=== PATIENT | female | born 1990 | race American Indian/Alaskan Native ===

== ENCOUNTER 2017-01-24 21:51 | Emergency (ER) | payer SELFPAY ==
[2017-01-24 23:32] LABS: Basophils % (Auto) 0.5 % (0.0-1.8); Eosinophils % (Auto) 2.3 % (0.0-4.3); Hematocrit 36.4 % (30.3-42.9); Mean Corpuscular HGB Conc 33 % (30-34); Mean Corpuscular Hemoglobin 29 pg (28-32); Mean Corpuscular Volume 88 fl (79-97); Platelet Count 199 K/mm3 (140-440); Red Blood Count 4.12 M/mm3 (3.65-5.03); Red Cell Distribution Width 13.7 % (13.2-15.2); White Blood Count 5.6 K/mm3 (4.5-11.0)
[2017-01-25 00:21] LABS: Anion Gap 17 mmol/L; BUN/Creatinine Ratio 16.66; Blood Urea Nitrogen 10 mg/dL (7-17); Calcium 9.1 mg/dL (8.4-10.2); Carbon Dioxide 25 mmol/L (22-30); Chloride 106.2 mmol/L (98-107); Creatine Kinase MB 1.3 ng/mL (0.0-4.0); Glucose 92 mg/dL (65-100); Potassium 4.1 mmol/L (3.6-5.0); Sodium 144 mmol/L (137-145)
[2017-01-25 00:45] VITALS: BP 126/79
--- NOTE | 2017-01-25 01:21 | Emergency Department Report ---
HPI - General Chief Complaint: Upper Respiratory Infection Time Seen by Provider: 01/25/17 01:06 - HPI HPI: 26-year-old female presents to the ED complaining of cough times about 2 weeks. Patient states 3 days ago coughing worsened and has become intermittent causing her mild chest pain every time she coughs. Patient states sometimes dry cough and sometimes it is productive. Patient denies fevers/chills/nausea/vomiting/abdominal pain/chest pain/ shortness of breath/dizziness/blurry vision. ED Past Medical Hx - Past Medical History Previous Medical History?: No - Surgical History Past Surgical History?: No - Social History Smoking Status: Never Smoker Substance Use Type: None - Medications Home Medications: Home Medications Medication Instructions Recorded Confirmed Last Taken Type Acetamin/Codeine 120-12Mg/5 ml 5 ml PO TID PRN #80 ml 01/25/17 Unknown Rx [Tylenol/Codeine] predniSONE [Deltasone] 20 mg PO DAILY #4 tablet 01/25/17 Unknown Rx ED Review of Systems ROS: Stated complaint: TIGHTNESS IN CHEST, SHORTNESS OF BREATH, COUGH Other details as noted in HPI Constitutional: denies: chills, fever Eyes: denies: eye pain, eye discharge, vision change ENT: denies: ear pain, throat pain Respiratory: denies: cough, shortness of breath, wheezing Cardiovascular: denies: chest pain, palpitations Endocrine: no symptoms reported Gastrointestinal: denies: abdominal pain, nausea, vomiting, diarrhea, constipation Genitourinary: denies: urgency, dysuria, frequency, hematuria, discharge Musculoskeletal: denies: back pain, joint swelling, arthralgia, myalgia Skin: denies: rash, lesions, change in color, pruritus Neurological: denies: headache, weakness, numbness, paresthesias, confusion Psychiatric: denies: anxiety, depression, suicidal thoughts Hematological/Lymphatic: denies: easy bleeding, easy bruising, swollen glands Physical Exam - Physical Exam Vital Signs: Vital Signs 01/24/17 01/25/17 21:59 00:44 Temperature 98.9 F 98.2 F Pulse Rate 95 H 86 Respiratory 18 16 Rate Blood Pressure 117/79 126/79 [Right] O2 Sat by Pulse 99 100 Oximetry Physical Exam: GENERAL: Alert and oriented x3, no apparent distress, Normal Gait, atraumatic. HEAD: Head is normocephalic and a-traumatic. EYES: Extra ocular muscles are intact. Pupils are equal, round, and reactive to light and accommodation. EARS: symetrical, atraumatic, non tender, ear canal clear and moderate cerumen, tympanic membrance non inflamed. gross auditory nml bilaterally. NOSE: Nose symetrical, Nontender,Nares appeared normal. MOUTH:Mouth is well hydrated and without lesions. Tonsils nonerythematous or swollen, Uvula midline, Tongue not elevated. Mucous membranes are moist. Posterior pharynx clear, no exudate or lesions. Patent airways. NECK: Supple. Non edematous, No carotid bruits. No lymphadenopathy or thyromegaly. LUNGS: Symetrical with respiration, No wheezing, no rales or crackles, CTAB. HEART: S1, S2 present, regular rate and rhythm without murmur, no rubs, no gallops. NEUROLOGIC: No focal Deficit, Cranial nerves II through XII are grossly intact. No loss of sensation, SKIN: Warm and dry, No lesions, No ulceration or induration present. ED Course Vital Signs 01/24/17 01/25/17 21:59 00:44 Temperature 98.9 F 98.2 F Pulse Rate 95 H 86 Respiratory 18 16 Rate Blood Pressure 117/79 126/79 [Right] O2 Sat by Pulse 99 100 Oximetry ED Medical Decision Making - Lab Data Result diagrams: 01/24/17 23:07 01/24/17 23:07 - EKG Data EKG shows normal: sinus rhythm Rate: normal - Radiology Data Radiology results: report reviewed, image reviewed FINAL REPORT EXAM: XR CHEST ROUTINE 2V HISTORY: Shortness of breath TECHNIQUE: PA and lateral views of the chest PRIORS: None. FINDINGS: Lines, tubes, and devices: N/A Lungs and pleura: Trachea is normal in position. Lungs are clear of infiltrate, pleural effusion, vascular congestion, or pneumothorax. Cardiomediastinal silhouette: Cardiac and mediastinal silhouettes are unremarkable. Other: Bony structures are intact. IMPRESSION: No acute cardiopulmonary process seen. Transcribed By: [facility] Dictated By: EVERETTE RIZVI MD Electronically Authenticated By: EVERETTE RIZVI MD Signed Date/Time: 01/25/17 0300 - Medical Decision Making 26-year-old female presents to bronchitis. ED course: Patient received 10 mg of prednisone and Robitussin. CBC, BMP, chest x-ray, EKG completed. All normal, no abnormalities. Discussed all medication related Tylenol with Codeine and Lindsay Kraft. Discussed to follow up with primary care physician. Patient is in no acute blister distress vital signs are stable. Critical care attestation.: If time is entered above; I have spent that time in minutes in the direct care of this critically ill patient, excluding procedure time. ED Disposition Clinical Impression: Bronchitis Disposition: DISCHARGED TO HOME OR SELFCARE Is pt being admited?: No Does the pt Need Aspirin: No Condition: Stable Instructions: Acute Bronchitis (ED), Chronic Bronchitis (ED) Prescriptions: Acetamin/Codeine 120-12Mg/5 ml [Tylenol/Codeine] 5 ml PO TID PRN #80 ml PRN Reason: Pain predniSONE [Deltasone] 20 mg PO DAILY #4 tablet Referrals: PRIMARY CAREMD [Primary Care Provider] - 3-5 Days LAINEY HOOD MD [Referring] - 3-5 Days SAMANTA JAIME MD [Referring] - 3-5 Days KELLY ORTIZ MD [Staff Physician] - 3-5 Days [facility] [Outside] - 3-5 Days [facility] [Outside] - 3-5 Days [facility] [Outside] - 3-5 Days Forms: Work/School Release Form(ED) Time of Disposition: 02:28
[2017-01-25] MEDS ORDERED: DELTASONE PO ONE (02:26)
[2017-01-25] MEDS ORDERED: ROBITUSSIN PO ONE (02:26)
--- NOTE | 2017-01-25 03:04 | XRay Report ---
FINAL REPORT EXAM: XR CHEST ROUTINE 2V HISTORY: Shortness of breath TECHNIQUE: PA and lateral views of the chest PRIORS: None. FINDINGS: Lines, tubes, and devices: N/A Lungs and pleura: Trachea is normal in position. Lungs are clear of infiltrate, pleural effusion, vascular congestion, or pneumothorax. Cardiomediastinal silhouette: Cardiac and mediastinal silhouettes are unremarkable. Other: Bony structures are intact. IMPRESSION: No acute cardiopulmonary process seen.
== END 2017-01-25 03:35 | disposition home or self-care (01) ==
LOC: ED 21:51
DX: J40 Bronchitis, not specified as acute or chronic (principal)
CPT/HCPCS: 36415; 71020; 80048; 82550; 82553; 84484; 84703; 85025; 93005; 93010; 99284; J7512

== ENCOUNTER 2017-06-02 04:21 | Emergency (ER) | payer OTHER ==
[2017-06-02 04:59] VITALS: BP 119/80
[2017-06-02 05:42] LABS: Basophils % (Auto) 0.2 % (0.0-1.8); Hematocrit 36.4 % (30.3-42.9); Hemoglobin 12.4 gm/dl (10.1-14.3); Mean Corpuscular HGB Conc 34 % (30-34); Mean Corpuscular Hemoglobin 30 pg (28-32); Mean Corpuscular Volume 89 fl (79-97); Platelet Count 212 K/mm3 (140-440); Red Cell Distribution Width 13.1 % (13.2-15.2); White Blood Count 5.9 K/mm3 (4.5-11.0)
[2017-06-02 05:52] LABS: Bacteria,Urine 1+ /HPF (Negative); Bilirubin,Urine NEG (Negative); Blood,Urine MOD (Negative); Ketones,Urine NEG (Negative); Leukocyte Esterase,Urine LG (Negative); Mucus,Urine FEW /HPF; Nitrite,Urine NEG (Negative)
[2017-06-02 06:06] LABS: Albumin 4.3 g/dL (3.9-5); Albumin/Globulin Ratio 1.1 %; Alkaline Phosphatase 61 units/L (35-129); Anion Gap 16 mmol/L; Blood Urea Nitrogen 9 mg/dL (7-17); Calcium 9.6 mg/dL (8.4-10.2); Carbon Dioxide 28 mmol/L (22-30); Chloride 97.6 mmol/L (98-107); Glucose 110 mg/dL (65-100); Lipase 18 units/L (13-60); Sodium 138 mmol/L (137-145); Total Protein 8.2 g/dL (6.3-8.2)
[2017-06-02 06:07] LABS: Alanine Aminotransferase < 5 units/L (7-56)
--- NOTE | 2017-06-02 06:28 | Ultrasound Report ---
FINAL REPORT PROCEDURE: Pelvic ultrasound transabdominal and transvaginal TECHNIQUE: Real-time transabdominal sonography in multiple planes of the pelvis was performed. The pelvic structures, especially the ovaries were not optimally visualized. Transvaginal sonography was then performed to better evaluate the structures and/or abnormalities described below with image documentation. CPT 33399 and 58999 HISTORY: vaginal bleeding COMPARISON: No prior studies are available for comparison. FINDINGS: UTERUS Size: 7.2 x 4.8 x 6 cm. Endometrial thickness: 6 mm. Orientation: anteverted. Cervix: Normal. Fibroids/masses: None. RIGHT Ovary: 3 6 x 1.3 x 1.4 cm. Appearance: Normal. LEFT Ovary: 2.9 x 1 x 1 cm. Appearance: Normal. Pelvic fluid: None. Other: None. IMPRESSION: Normal Examination
--- NOTE | 2017-06-02 06:28 | Ultrasound Report ---
FINAL REPORT PROCEDURE: Pelvic ultrasound transabdominal and transvaginal TECHNIQUE: Real-time transabdominal sonography in multiple planes of the pelvis was performed. The pelvic structures, especially the ovaries were not optimally visualized. Transvaginal sonography was then performed to better evaluate the structures and/or abnormalities described below with image documentation. CPT 06896 and 41390 HISTORY: vaginal bleeding COMPARISON: No prior studies are available for comparison. FINDINGS: UTERUS Size: 7.2 x 4.8 x 6 cm. Endometrial thickness: 6 mm. Orientation: anteverted. Cervix: Normal. Fibroids/masses: None. RIGHT Ovary: 3 6 x 1.3 x 1.4 cm. Appearance: Normal. LEFT Ovary: 2.9 x 1 x 1 cm. Appearance: Normal. Pelvic fluid: None. Other: None. IMPRESSION: Normal Examination
--- NOTE | 2017-06-02 06:31 | Emergency Department Report ---
ED Abdominal Pain HPI - General Chief Complaint: Abdominal Pain Stated Complaint: ABD PAIN Time Seen by Provider: 06/02/17 06:29 Source: patient Mode of arrival: Ambulatory Limitations: No Limitations - History of Present Illness Initial Comments: The patient states that she has had suprapubic and right lower quadrant discomfort since Friday. It has been nonmigratory. Intermittent in nature. She states that she's had the very same symptoms with a "UTI in the past before. She did refer some lower back pain on the right as well as some intermittent nausea. She was concerned that she might be due to irregular vaginal bleeding. She denies fever or chills. She has not had vaginal discharge. She doesn't have a chlorinator in the area. She has not been on any recent antibiotics. MD Complaint: abdominal pain -: Gradual, days(s) Location: RLQ, suprapubic Radiation: none Migration to: no migration Severity: mild, moderate Quality: aching Consistency: intermittent, now resolved Improves With: nothing Worsens With: nothing Associated Symptoms: nausea. denies: chills, hematemesis, melena, hematuria - Related Data Previous Rx's Medication Instructions Recorded Last Taken Type Acetamin/Codeine 120-12Mg/5 ml 5 ml PO TID PRN #80 ml 01/25/17 Unknown Rx [Tylenol/Codeine] predniSONE [Deltasone] 20 mg PO DAILY #4 tablet 01/25/17 Unknown Rx Nitrofurantoin [place]/M-Cryst 100 mg PO Q12HR #10 capsule 06/02/17 Unknown Rx [Macrobid CAP] traMADol [Ultram] 50 mg PO Q6HR PRN #10 tablet 06/02/17 Unknown Rx Allergies Allergy/AdvReac Type Severity Reaction Status Date / Time No Known Allergies Allergy Verified 01/24/17 22:05 ED Review of Systems ROS: Stated complaint: ABD PAIN Other details as noted in HPI Constitutional: denies: chills, fever Eyes: denies: eye pain, eye discharge, vision change ENT: denies: ear pain, throat pain Respiratory: denies: cough, shortness of breath, wheezing Cardiovascular: denies: chest pain, palpitations Endocrine: no symptoms reported Gastrointestinal: abdominal pain, nausea. denies: diarrhea Genitourinary: denies: urgency, dysuria, discharge Musculoskeletal: back pain. denies: joint swelling, arthralgia Skin: denies: rash, lesions Neurological: denies: headache, weakness, paresthesias Psychiatric: denies: anxiety, depression Hematological/Lymphatic: denies: easy bleeding, easy bruising ED Past Medical Hx - Past Medical History Previous Medical History?: No - Surgical History Past Surgical History?: Yes Additional Surgical History: Leep, csection - Social History Smoking Status: Current Some Day Smoker - Medications Home Medications: Home Medications Medication Instructions Recorded Confirmed Last Taken Type Acetamin/Codeine 120-12Mg/5 ml 5 ml PO TID PRN #80 ml 01/25/17 Unknown Rx [Tylenol/Codeine] predniSONE [Deltasone] 20 mg PO DAILY #4 tablet 01/25/17 Unknown Rx Nitrofurantoin [place]/M-Cryst 100 mg PO Q12HR #10 capsule 06/02/17 Unknown Rx [Macrobid CAP] traMADol [Ultram] 50 mg PO Q6HR PRN #10 tablet 06/02/17 Unknown Rx ED Physical Exam - General Limitations: No Limitations General appearance: alert, in no apparent distress - Head Head exam: Present: atraumatic, normocephalic - Eye Eye exam: Present: normal appearance - ENT ENT exam: Present: mucous membranes moist - Neck Neck exam: Present: normal inspection - Respiratory Respiratory exam: Present: normal lung sounds bilaterally. Absent: respiratory distress - Cardiovascular Cardiovascular Exam: Present: regular rate, normal rhythm. Absent: systolic murmur, diastolic murmur, rubs, gallop - GI/Abdominal GI/Abdominal exam: Present: soft, normal bowel sounds. Absent: distended, tenderness, guarding, rebound, rigid - Extremities Exam Extremities exam: Present: normal inspection - Back Exam Back exam: Present: normal inspection. Absent: CVA tenderness (R), CVA tenderness (L) - Neurological Exam Neurological exam: Present: alert, oriented X3, CN II-XII intact. Absent: motor sensory deficit - Psychiatric Psychiatric exam: Present: normal affect, normal mood - Skin Skin exam: Present: warm, dry, intact, normal color. Absent: rash ED Course Vital Signs 06/02/17 06/02/17 04:42 05:17 Temperature 98.9 F Pulse Rate 93 H 92 H Respiratory 18 22 Rate Blood Pressure 119/80 O2 Sat by Pulse 100 97 Oximetry - Reevaluation(s) Reevaluation #1: Patient is pain-free now. Her abdominal exam is totally benign. Her ultrasound was normal. Her white count was 5.9. I could not justify CT imaging at this juncture. The patient states she's had similar symptoms with UTI before. The patient is given return criteria and referral for follow-up. She will be treated for cystitis. 06/02/17 07:24 ED Medical Decision Making - Lab Data Result diagrams: 06/02/17 04:55 06/02/17 04:55 Laboratory Results - last 24 hr 06/02/17 06/02/17 06/02/17 04:55 04:55 04:55 WBC 5.9 RBC 4.10 Hgb 12.4 Hct 36.4 MCV 89 MCH 30 MCHC 34 RDW 13.1 L Plt Count 212 Lymph % (Auto) 44.7 H [place] % (Auto) 8.9 H Eos % (Auto) 1.0 Baso % (Auto) 0.2 Lymph # 2.6 [place] # 0.5 Eos # 0.1 Baso # 0.0 Seg Neutrophils % 45.2 Seg Neutrophils # 2.7 Sodium 138 Potassium 4.0 Chloride 97.6 L Carbon Dioxide 28 Anion Gap 16 BUN 9 Creatinine 0.5 L Estimated GFR > 60 BUN/Creatinine Ratio 18.00 Glucose 110 H Calcium 9.6 Total Bilirubin 0.50 AST 12 ALT < 5 L Alkaline Phosphatase 61 Total Protein 8.2 Albumin 4.3 Albumin/Globulin Ratio 1.1 Lipase 18 HCG, Quant < 2 Urine Color Urine Turbidity Urine pH Ur Specific [place] Urine Protein Urine Glucose (UA) Urine Ketones Urine Blood Urine Nitrite Urine Bilirubin Urine Urobilinogen Ur Leukocyte Esterase Urine WBC (Auto) Urine RBC (Auto) U Epithel Cells (Auto) Urine Bacteria (Auto) Urine Mucus 06/02/17 05:04 WBC RBC Hgb Hct MCV MCH MCHC RDW Plt Count Lymph % (Auto) [place] % (Auto) Eos % (Auto) Baso % (Auto) Lymph # [place] # Eos # Baso # Seg Neutrophils % Seg Neutrophils # Sodium Potassium Chloride Carbon Dioxide Anion Gap BUN Creatinine Estimated GFR BUN/Creatinine Ratio Glucose Calcium Total Bilirubin AST ALT Alkaline Phosphatase Total Protein Albumin Albumin/Globulin Ratio Lipase HCG, Quant Urine Color Yellow Urine Turbidity Clear Urine pH 6.0 Ur Specific [place] 1.011 Urine Protein 100 mg/dl Urine Glucose (UA) Neg Urine Ketones Neg Urine Blood Mod Urine Nitrite Neg Urine Bilirubin Neg Urine Urobilinogen 2.0 Ur Leukocyte Esterase Lg Urine WBC (Auto) 34.0 H Urine RBC (Auto) 9.0 U Epithel Cells (Auto) 1.0 Urine Bacteria (Auto) 1+ Urine Mucus Few Critical care attestation.: If time is entered above; I have spent that time in minutes in the direct care of this critically ill patient, excluding procedure time. ED Disposition Clinical Impression: Dysfunctional uterine bleeding Acute cystitis Qualifiers: Hematuria presence: without hematuria Qualified Code(s): N30.00 - Acute cystitis without hematuria Disposition: TO HOME OR SELFCARE Is pt being admited?: No Does the pt Need Aspirin: No Condition: Stable Instructions: Abdominal Pain (ED), Dysfunctional Uterine Bleeding (ED), Urinary Tract Infection in Women (ED) Additional Instructions: Follow-up on your urine culture in 2 days with chlorinator. Return any significant abdominal pain fever chills vomiting or acute change. Rx as directed. Prescriptions: Nitrofurantoin [place]/M-Cryst [Macrobid CAP] 100 mg PO Q12HR #10 capsule traMADol [Ultram] 50 mg PO Q6HR PRN #10 tablet PRN Reason: Pain Referrals: PRIMARY CARE, [Primary Care Provider] - 3-5 Days Time of Disposition: 07:27
== END 2017-06-02 07:57 | disposition home or self-care (01) ==
LOC: ED 04:21
DX: N93.8 Other specified abnormal uterine and vaginal bleeding (principal); N30.00 Acute cystitis without hematuria; F17.210 Nicotine dependence, cigarettes, uncomplicated
CPT/HCPCS: 36415; 76830; 76856; 80053; 81001; 83690; 84702; 85025; 86850; 86900; 86901; 87076; 87086; 87186; 99284